=== PATIENT | male | born 1960 | race American Indian/Alaskan Native ===

== ENCOUNTER 2019-09-14 10:42 | Inpatient (IN) | payer OTHER ==
[2019-09-14] MEDS ORDERED: ASPIRIN 325 MG TAB PO ONE (10:45)
[2019-09-14] MEDS ORDERED: ACETAMINOPHEN 325 MG TAB PO ONE ×2 (11:01→11:08)
--- NOTE | 2019-09-14 11:22 | XRay Report ---
CHEST 1 VIEW INDICATION / CLINICAL INFORMATION: Chest Pain. COMPARISON: None available. FINDINGS: SUPPORT DEVICES: None. HEART / MEDIASTINUM: No significant abnormality. LUNGS / PLEURA: No significant pulmonary or pleural abnormality. No pneumothorax. ADDITIONAL FINDINGS: No significant additional findings. IMPRESSION: No acute pulmonary or pleural abnormality Signer Name: Yusef Coyle MD FACR Signed: 09/14/2019 11:18 AM Workstation Name: [id number]
[2019-09-14 11:28] LABS: Basophils % (Auto) 0.2 % (0.0-1.8); Hematocrit 41.9 % (35.5-45.6); Hemoglobin 14.1 gm/dl (11.8-15.2); Lymphocytes # (Auto) 0.8 K/mm3 (1.2-5.4); Lymphocytes % (Auto) 6.4 % (13.4-35.0); Mean Corpuscular HGB Conc 34 % (32-34); Mean Corpuscular Volume 89 fl (84-94); Monocytes # (Auto) 1.1 K/mm3 (0.0-0.8); Monocytes % (Auto) 8.8 % (0.0-7.3); Platelet Count 256 K/mm3 (140-440); Red Blood Count 4.69 M/mm3 (3.65-5.03); Red Cell Distribution Width 13.9 % (13.2-15.2)
[2019-09-14 11:48] LABS: Calcium 9.4 mg/dL (8.4-10.2)
[2019-09-14] MEDS ORDERED: SODIUM CHLORIDE 0.9% 500 ML 500 ML IV ONE (11:56)
--- NOTE | 2019-09-14 12:28 | Emergency Department Report ---
ED General Adult HPI - General Chief complaint: Chest Pain Stated complaint: CHEST PAIN/LEG PAIN Time Seen by Provider: 09/14/19 11:00 Source: patient Mode of arrival: Stretcher Limitations: Physical Limitation - History of Present Illness Initial comments: Patient is a 67-year-old F Iranian male with a past medical history of hypertension who is presenting with 3 days of chest discomfort. Patient states he feels as though it is a hollow sensation in the center chest. States the pain is intermittent and is worse with exertion. Patient states he is getting very weak and fatigued and his his exercise tolerance is significantly decreased. Patient denies shortness of breath cough fevers or chills. States he is had no nausea vomiting or diarrhea. Patient states that it takes him an hour to do simple tasks which normally would take him several minutes. Patient also is complaining of achiness in his anterior thighs bilaterally. States ther e is no pain with palpation but he does have significant soreness with movement. Severity scale (0 -10): 4 - Related Data Allergies Allergy/AdvReac Type Severity Reaction Status Date / Time No Known Allergies Allergy Unverified 09/14/19 10:45 ED Review of Systems ROS: Stated complaint: CHEST PAIN/LEG PAIN Other details as noted in HPI Comment: All other systems reviewed and negative ED Past Medical Hx - Past Medical History Previous Medical History?: Yes Hx Hypertension: Yes Hx Psychiatric Treatment: Yes (PTSD) - Surgical History Past Surgical History?: No - Social History Smoking Status: Never Smoker Substance Use Type: None ED Physical Exam - General Limitations: Physical Limitation General appearance: alert, in no apparent distress - Head Head exam: Present: atraumatic, normocephalic - Eye Eye exam: Present: normal appearance - ENT ENT exam: Present: normal orophraynx, mucous membranes moist - Neck Neck exam: Present: normal inspection - Respiratory Respiratory exam: Present: normal lung sounds bilaterally. Absent: respiratory distress, wheezes, rales, rhonchi - Cardiovascular Cardiovascular Exam: Present: normal rhythm, tachycardia, normal heart sounds. Absent: systolic murmur, diastolic murmur, rubs, gallop - GI/Abdominal GI/Abdominal exam: Present: soft, normal bowel sounds. Absent: distended, tenderness, guarding, rebound - Rectal Rectal exam: Present: deferred - Extremities Exam Extremities exam: Present: normal inspection. Absent: tenderness, calf tenderness - Back Exam Back exam: Present: normal inspection - Neurological Exam Neurological exam: Present: alert, oriented X3 - Psychiatric Psychiatric exam: Present: normal affect, normal mood - Skin Skin exam: Present: warm, dry, intact, normal color. Absent: rash ED Course Vital Signs 09/14/19 11:02 Temperature 100.8 F H Pulse Rate 112 H Respiratory 16 Rate Blood Pressure 143/95 [Left] O2 Sat by Pulse 94 Oximetry - Reevaluation(s) Reevaluation #1: 09/14/19 12:25 Patient denies shortness of breath or cough however he was surprisingly febrile when vital signs were taken. Once the patient's white count returned at 12.2 patient was placed on sepsis protocol. Patient was given Rocephin and azithromycin after blood cultures were drawn. Patient had no decrease in his map or blood pressure and the 30 cc/kg bolus will be held at this time until the lactic acid returns. Patient given 500 cc of normal saline and this will be adjusted appropriately if the lactic is greater than 4. Patient's symptoms are most closely associated with angina however with the fever and elevated white count pneumonia pulmonary embolus are also on the patient's differential. Chest x-ray is inconclusive at this time. A CT of the chest with angiography and ultrasound of the bilateral lower extremities have been added as well. ED Medical Decision Making - Lab Data Result diagrams: 09/14/19 10:45 09/14/19 11:02 Lab Results 09/14/19 09/14/19 09/14/19 Range/Units 10:45 11:02 11:03 WBC 12.2 H (4.5-11.0) K/mm3 RBC 4.69 (3.65-5.03) M/mm3 Hgb 14.1 (11.8-15.2) gm/dl Hct 41.9 (35.5-45.6) % MCV 89 (84-94) fl MCH 30 (28-32) pg MCHC 34 (32-34) % RDW 13.9 (13.2-15.2) % Plt Count 256 (140-440) K/mm3 Lymph % (Auto) 6.4 L (13.4-35.0) % [place] % (Auto) 8.8 H (0.0-7.3) % Eos % (Auto) 0.0 (0.0-4.3) % Baso % (Auto) 0.2 (0.0-1.8) % Lymph # 0.8 L (1.2-5.4) K/mm3 [place] # 1.1 H (0.0-0.8) K/mm3 Eos # 0.0 (0.0-0.4) K/mm3 Baso # 0.0 (0.0-0.1) K/mm3 Seg Neutrophils % 84.6 H (40.0-70.0) % Seg Neutrophils # 10.3 H (1.8-7.7) K/mm3 D-Dimer 958.76 H (0-234) ng/mlDDU Sodium 137 (137-145) mmol/L Potassium 3.7 (3.6-5.0) mmol/L Chloride 98.0 (98-107) mmol/L Carbon Dioxide 23 (22-30) mmol/L Anion Gap 20 mmol/L BUN 16 (9-20) mg/dL Creatinine 1.3 (0.8-1.5) mg/dL Estimated GFR 56 ml/min BUN/Creatinine Ratio 12 % Glucose 152 H (75-100) mg/dL Calcium 9.4 (8.4-10.2) mg/dL Troponin T 0.013 (0.00-0.029) ng/mL - EKG Data -: EKG Interpreted by Wi EKG shows normal: sinus rhythm, axis, intervals, QRS complexes, ST-T waves Rate: tachycardia - EKG Data Interpretation: normal EKG - Radiology Data [facility] [address] [place] [address] XRay Report Signed Patient: SHAUNA VELEZ MR#: [id number] : 1960 Acct:[id number] Age/Sex: 59 / M ADM Date: 09/14/19 Loc: ED Attending Dr: Ordering Physician: ZANDER DAVIS MD Date of Service: 09/14/19 Procedure(s): XR chest 1V ap Accession Number(s): [id number] cc: ZANDER DAVIS MD Fluoro Time In Minutes: CHEST 1 VIEW INDICATION / CLINICAL INFORMATION: Chest Pain. COMPARISON: None available. FINDINGS: SUPPORT DEVICES: None. HEART / MEDIASTINUM: No significant abnormality. LUNGS / PLEURA: No significant pulmonary or pleural abnormality. No pne umothorax. ADDITIONAL FINDINGS: No significant additional findings. IMPRESSION: No acute pulmonary or pleural abnormality Signer Name: Yusef Coyle MD FACR Signed: 09/14/2019 11:18 AM Workstation Name: [email or web address] Transcribed By: MS Dictated By: Yusef Coyle MD Electronically Authenticated By: Yusef Coyle MD Signed Date/Time: 09/14/19 1118 Ultrasound Doppler of the bilateral lower extremities shows no acute DVT Ordering Physician: ZANDER DAVIS MD Date of Service: 09/14/19 Procedure(s): CT angio chest Accession Number(s): [id number] cc: ZANDER DAVIS MD CTA CHEST WITH IV CONTRAST INDICATION / CLINICAL INFORMATION: MAIN: chest pain x3days elevated ddimer, can't move legs. [id number] 100ml. TECHNIQUE: Axial CT images were obtained through the chest after injection of 100 MLO Omnipaque 350 IV contrast. 3 plane MIP and/or 3D reconstructions were produced. All CT scans at this location are performed using CT dose reduction for ALARA by means of automated exposure control. COMPARISON: Chest radiograph from earlier the same day FINDINGS: PULMONARY ARTERIES: No pulmonary emboli. THORACIC AORTA: No significant abnormality. HEART: No significant abnormality. CORONARY ARTERIES: No significant calcification. PLEURA: No pleural effusion. No pneumothorax. LYMPH NODES: No adenopathy. LUNGS: No acute air space or interstitial disease. ADDITIONAL FINDINGS: None. UPPER ABDOMEN: No acute findings. SKELETAL STRUCTURES: No significant osseous abnormality. IMPRESSION: 1. No CT evidence for pulmonary embolism. 2. No acute findings. Signer Name: Flash Camacho MD Signed: 09/14/2019 1:58 PM Workstation Name: [id number] - Medical Decision Making Patient is a 59-year-old F Iranian male who is presenting with chest discomfort and decreased exercise tolerance. Chest x-ray was negative for any acute process. CT a of the chest was ordered since the patient did have elevated d- dimer and patient was tachycardic. CT angios showed no evidence of aortic dissection, pulmonary embolus, or missed pneumonia on from the chest x-ray. Patient will be admitted for observation for further cardiac risk ratification. He does have a elevated heart score of 5 making him moderate risk of complication from coronary artery disease. Critical Care Time: Yes (30) Critical care attestation.: If time is entered above; I have spent that time in minutes in the direct care of this critically ill patient, excluding procedure time. ED Disposition Clinical Impression: Unstable angina, Fever, unknown origin Disposition: DC-09 OP ADMIT IP TO THIS HOSP Is pt being admited?: Yes Does the pt Need Aspirin: No Condition: Stable Time of Disposition: 14:36 Heart Score - HEART Score History: Highly suspicious EKG: Non-specific Age: 45-65 Risk factors: 1-2 risk factors Troponin: < normal limit HEART Score: 5
--- NOTE | 2019-09-14 12:35 | Vascular Lab Report ---
VL venous duplex LE BILAT INDICATION / CLINICAL INFORMATION: bilateral leg pain. Doppler ultrasound and spectral analysis was performed on both lower extremities COMPARISON: None available. FINDINGS: The common femoral, superficial femoral, popliteal and calf veins were all identified. The veins were all compressible no obvious thrombus is seen. Normal Doppler flow seen in each vessel. IMPRESSION: No evidence of deep venous thrombosis of the lower extremities Signer Name: Yusef Coyle MD FACDeepa Signed: 09/14/2019 12:30 PM Workstation Name: [id number]
[2019-09-14] MEDS: cefTRIAXone/NS 2 GM/100 ML 2 GM/100 ML BAG IV SCH (12:42)
[2019-09-14] MEDS: AZITHROMYCIN 500 MG in SODIUM CHLORIDE 0.9% 250ML 250 ML IV SCH (13:01)
--- NOTE | 2019-09-14 14:02 | Cat Scan Report ---
CTA CHEST WITH IV CONTRAST INDICATION / CLINICAL INFORMATION: MAIN: chest pain x3days elevated ddimer, can't move legs. [id number] 100ml. TECHNIQUE: Axial CT images were obtained through the chest after injection of 100 MLO Omnipaque 350 IV contrast. 3 plane MIP and/or 3D reconstructions were produced. All CT scans at this location are performed usi ng CT dose reduction for ALARA by means of automated exposure control. COMPARISON: Chest radiograph from earlier the same day FINDINGS: PULMONARY ARTERIES: No pulmonary emboli. THORACIC AORTA: No significant abnormality. HEART: No significant abnormality. CORONARY ARTERIES: No significant calcification. PLEURA: No pleural effusion. No pneumothorax. LYMPH NODES: No adenopathy. LUNGS: No acute air space or interstitial disease. ADDITIONAL FINDINGS: None. UPPER ABDOMEN: No acute findings. SKELETAL STRUCTURES: No significant osseous abnormality. IMPRESSION: 1. No CT evidence for pulmonary embolism. 2. No acute findings. Signer Name: Flash Camacho MD Signed: 09/14/2019 1:58 PM Workstation Name: [id number]
[2019-09-14 17:28] LABS: Bilirubin,Urine NEG (Negative); Blood,Urine MOD (Negative); Color,Urine Amber (Yellow); Hyaline Casts,Urine 2 /LPF; Mucus,Urine FEW /HPF; Urobilinogen,Urine < 2.0 mg/dL (<2.0)
[2019-09-14] MEDS ORDERED: ONDANSETRON 4 MG/2 ML INJ IV PRN (22:24)
--- NOTE | 2019-09-14 22:24 | History and Physical Report ---
History of Present Illness Date of examination: 09/14/19 Date of admission: 09/14/19 14:36 Chief complaint: Chest pain for 3 days History of present illness: 67-year-old F [place] male with a past medical history of hypertension who is presenting with 3 days of chest discomfort. Patient states he feels as though it is a hollow sensation in the center chest. States the pain is intermittent and is worse with exertion. Patient states he is getting very weak and fatigued and his exercise tolerance is significantly decreased. Patient denies shortness of breath cough fevers or chills. States he is had no nausea vomiting or diarrhea. Patient states that it takes him an hour to do simple tasks which normally would take him several minutes. Patient also is complaining of achiness in his anterior thighs bilaterally. States there is no pain with palpation but he does have significant soreness with movement. Past Medical History Previous Medical History?: Yes Hypertension: Yes Psychiatric Treatment: Yes (PTSD) Surgical History Past Surgical History?: No Social History Smoking Status: Never Smoker Substance Use Type: None Family history Htn Review of Systems ROS: Stated complaint: CHEST PAIN/LEG PAIN Other details as noted in HPI Comment: All other systems reviewed and negative Medications and Allergies Allergies Allergy/AdvReac Type Severity Reaction Status Date / Time No Known Allergies Allergy Unverified 09/14/19 10:45 Home Medications Medication Instructions Recorded Confirmed Last Taken Type Unobtainable 09/14/19 09/14/19 Unknown History Active Meds: Active Medications Ceftriaxone Sodium (Rocephin/Ns 2 Gm/100 Ml) 2 gm in 100 mls @ 200 mls/hr IV Q24HR LYNN; Protocol Last Admin: 09/14/19 12:42 Dose: 200 mls/hr Documented by: Azithromycin 500 mg/ Sodium (Chloride) 250 mls @ 250 mls/hr IV Q24HR LYNN; Protocol Last Admin: 09/14/19 13:01 Dose: 250 mls/hr Documented by: Exam - Constitutional Vitals: Temp Pulse Resp BP Pulse Ox 98.2 F 99 H 18 167/99 97 09/14/19 17:44 09/14/19 16:50 09/14/19 17:44 09/14/19 17:44 09/14/19 16:50 General appearance: Present: no acute distress, well-nourished - EENT Eyes: Present: PERRL ENT: hearing intact, clear oral mucosa - Neck Neck: Present: supple, normal ROM - Respiratory Respiratory effort: normal Respiratory: bilateral: CTA - Cardiovascular Heart rate: 78 Rhythm: regular Heart Sounds: Present: S1 & S2. Absent: rub, click - Extremities Extremities: no ischemia, pulses intact, pulses symmetrical, No edema Peripheral Pulses: within normal limits - Abdominal General gastrointestinal: Present: soft, non-tender, non-distended, normal bowel sounds Male genitourinary: Present: normal - Integumentary Integumentary: Present: clear, warm, dry - Musculoskeletal Musculoskeletal: gait normal, strength equal bilaterally - Psychiatric Psychiatric: appropriate mood/affect, intact judgment & insight - Neurologic Neurologic: CNII-XII intact, moves all extremities HEART Score - HEART Score EKG: Non-specific Age: 45-65 Risk factors: 1-2 risk factors Troponin: Troponin T < 0.010 ng/mL (0.00-0.029) 09/14/19 16:09 Troponin: < normal limit - Critical Actions Critical Actions: 0-3 pts:0.9-1.7%risk of adverse cardiac event.Candidate for discharge Results - Labs CBC & Chem 7: 09/15/19 04:01 09/15/19 04:01 Labs: Laboratory Last Values WBC 12.2 K/mm3 (4.5-11.0) H 09/14/19 10:45 RBC 4.69 M/mm3 (3.65-5.03) 09/14/19 10:45 Hgb 14.1 gm/dl (11.8-15.2) 09/14/19 10:45 Hct 41.9 % (35.5-45.6) 09/14/19 10:45 MCV 89 fl (84-94) 09/14/19 10:45 MCH 30 pg (28-32) 09/14/19 10:45 MCHC 34 % (32-34) 09/14/19 10:45 RDW 13.9 % (13.2-15.2) 09/14/19 10:45 Plt Count 256 K/mm3 (140-440) 09/14/19 10:45 Lymph % (Auto) 6.4 % (13.4-35.0) L 09/14/19 10:45 [place] % (Auto) 8.8 % (0.0-7.3) H 09/14/19 10:45 Eos % (Auto) 0.0 % (0.0-4.3) 09/14/19 10:45 Baso % (Auto) 0.2 % (0.0-1.8) 09/14/19 10:45 Lymph # 0.8 K/mm3 (1.2-5.4) L 09/14/19 10:45 [place] # 1.1 K/mm3 (0.0-0.8) H 09/14/19 10:45 Eos # 0.0 K/mm3 (0.0-0.4) 09/14/19 10:45 Baso # 0.0 K/mm3 (0.0-0.1) 09/14/19 10:45 Seg Neutrophils % 84.6 % (40.0-70.0) H 09/14/19 10:45 Seg Neutrophils # 10.3 K/mm3 (1.8-7.7) H 09/14/19 10:45 D-Dimer 958.76 ng/mlDDU (0-234) H 09/14/19 11:03 Sodium 137 mmol/L (137-145) 09/14/19 11:02 Potassium 3.7 mmol/L (3.6-5.0) 09/14/19 11:02 Chloride 98.0 mmol/L (98-107) 09/14/19 11:02 Carbon Dioxide 23 mmol/L (22-30) 09/14/19 11:02 Anion Gap 20 mmol/L 09/14/19 11:02 BUN 16 mg/dL (9-20) 09/14/19 11:02 Creatinine 1.3 mg/dL (0.8-1.5) 09/14/19 11:02 Estimated GFR 56 ml/min 09/14/19 11:02 BUN/Creatinine Ratio 12 % 09/14/19 11:02 Glucose 152 mg/dL (75-100) H 09/14/19 11:02 Lactic Acid 1.30 mmol/L (0.7-2.0) 09/14/19 14:26 Calcium 9.4 mg/dL (8.4-10.2) 09/14/19 11:02 Troponin T < 0.010 ng/mL (0.00-0.029) 09/14/19 16:09 Urine Color [place] (Yellow) 09/14/19 16:50 Urine Turbidity Clear (Clear) 09/14/19 16:50 Urine pH 5.0 (5.0-7.0) 09/14/19 16:50 Ur Specific [place] 1.021 (1.003-1.030) 09/14/19 16:50 Urine Protein 30 mg/dl mg/dL (Negative) 09/14/19 16:50 Urine Glucose (UA) Neg mg/dL (Negative) 09/14/19 16:50 Urine Ketones Neg mg/dL (Negative) 09/14/19 16:50 Urine Blood Mod (Negative) 09/14/19 16:50 Urine Nitrite Neg (Negative) 09/14/19 16:50 Urine Bilirubin Neg (Negative) 09/14/19 16:50 Urine Urobilinogen < 2.0 mg/dL (<2.0) 09/14/19 16:50 Ur Leukocyte Esterase Neg (Negative) 09/14/19 16:50 Urine WBC (Auto) 2.0 /HPF (0.0-6.0) 09/14/19 16:50 Urine RBC (Auto) 9.0 /HPF (0.0-6.0) 09/14/19 16:50 U Epithel Cells (Auto) 1.0 /HPF (0-13.0) 09/14/19 16:50 Hyaline Casts 2 /LPF 09/14/19 16:50 Urine Mucus Few /HPF 09/14/19 16:50 Short CBC 09/15/19 Range/Units 04:01 WBC 10.3 (4.5-11.0) K/mm3 Hgb 13.5 (11.8-15.2) gm/dl Hct 40.0 (35.5-45.6) % Plt Count 266 (140-440) K/mm3 BMP 09/15/19 04:01 Sodium 140 Potassium 4.0 Chloride 102.4 Carbon Dioxide 26 BUN 16 Creatinine 1.1 Glucose 159 H Calcium 9.0 Cardiac Enzymes 09/14/19 09/14/19 09/15/19 Range/Units 16:09 23:10 04:01 Troponin T < 0.010 0.011 0.012 (0.00-0.029) ng/mL Liver Function 05/24/20 Range/Units 04:01 Total Bilirubin 1.80 H (0.1-1.2) mg/dL AST 80 H (5-40) units/L ALT 107 H (7-56) units/L Alkaline Phosphatase 142 H (35-129) units/L Albumin 3.5 L (3.9-5) g/dL Urine 09/14/19 Range/Units 16:50 Urine Color [place] (Yellow) Urine pH 5.0 (5.0-7.0) Ur Specific [place] 1.021 (1.003-1.030) Urine Protein 30 mg/dl (Negative) mg/dL Urine Glucose (UA) Neg (Negative) mg/dL Microbiology: Microbiology 09/14/19 12:27 Peripheral/Venous Blood Culture - Preliminary Culture in Progress 09/14/19 12:27 Peripheral/Venous Blood Culture - Preliminary Culture in Progress - Imaging and Cardiology EKG: report reviewed (Sinus rhythm) Chest x-ray: report reviewed (No acute findings) CT scan - chest: report reviewed (No acute findings) MRI - head: report reviewed (Duplex scan lower extremities-no DVT) Assessment and Plan Advance Directives: Yes (Full code) - Patient Problems (1) Chest pain Current Visit: Yes Status: Acute Plan to address problem: Chest pain rule out [place] protocol Serial troponins Stress test in the morning of Monday Today is Monday (2) HTN (hypertension) Current Visit: Yes Status: Chronic Qualifiers: Hypertension type: essential hypertension Qualified Code(s): I10 - Esse ntial (primary) hypertension Plan to address problem: Patient has a baseline blood pressure of 150s/100 We will start him on valsartan 160 mg once p.o. daily (3) DVT prophylaxis Current Visit: Yes Status: Acute Plan to address problem: Patient on heparin and GI prophylaxis
[2019-09-14] MEDS: oxyCODONE /ACETAMINOPHEN 5-325MG TAB PO PRN (23:26)
[2019-09-14] MEDS: FAMOTIDINE 20 MG/2 ML INJ IV SCH (23:26)
[2019-09-14] MEDS: D5W/0.9% NACL 1,000 ML IV SCH (23:27)
[2019-09-15 04:38] LABS: Basophils % (Auto) 0.3 % (0.0-1.8); Eosinophils % (Auto) 0.1 % (0.0-4.3); Hemoglobin 13.5 gm/dl (11.8-15.2); Lymphocytes # (Auto) 0.7 K/mm3 (1.2-5.4); Lymphocytes % (Auto) 7.3 % (13.4-35.0); Mean Corpuscular HGB Conc 34 % (32-34); Mean Corpuscular Volume 91 fl (84-94); Monocytes # (Auto) 0.8 K/mm3 (0.0-0.8); Monocytes % (Auto) 7.6 % (0.0-7.3); Platelet Count 266 K/mm3 (140-440); Red Blood Count 4.42 M/mm3 (3.65-5.03); Red Cell Distribution Width 14.1 % (13.2-15.2)
[2019-09-15 05:01] LABS: Alanine Aminotransferase 107 units/L (7-56); Albumin 3.5 g/dL (3.9-5); BUN/Creatinine Ratio 15; Blood Urea Nitrogen 16 mg/dL (9-20); Hemolysis Index 0
[2019-09-15] MEDS: ACETAMINOPHEN 325 MG TAB PO PRN ×3 (08:56→22:25)
[2019-09-15] MEDS: oxyCODONE /ACETAMINOPHEN 5-325MG TAB PO PRN ×2 (08:57→14:33)
[2019-09-15] MEDS: FAMOTIDINE 20 MG/2 ML INJ IV SCH (09:00)
[2019-09-15] MEDS: cefTRIAXone/NS 2 GM/100 ML 2 GM/100 ML BAG IV SCH (09:00)
[2019-09-15] MEDS: AZITHROMYCIN 500 MG in SODIUM CHLORIDE 0.9% 250ML 250 ML IV SCH (10:04)
[2019-09-15] MEDS: D5W/0.9% NACL 1,000 ML IV SCH (14:34)
[2019-09-15] MEDS: FAMOTIDINE 20 MG TAB PO SCH (22:25)
--- NOTE | 2019-09-16 03:16 | Progress Note ---
Assessment and Plan - Patient Problems (1) Chest pain Current Visit: Yes Status: Acute Plan to address problem: Chest pain rule out [place] protocol Serial troponins Stress test in the morning of Monday Today is Monday (2) HTN (hypertension) Current Visit: Yes Status: Chronic Qualifiers: Hypertension type: essential hypertension Qualified Code(s): I10 - Essential (primary) hypertension Plan to address problem: Patient has a baseline blood pressure of 150s/100 We will start him on valsartan 160 mg once p.o. daily (3) SIRS (systemic inflammatory response syndrome) Current Visit: Yes Status: Acute Plan to address problem: Fever--r/o Covid (4) DVT prophylaxis Current Visit: Yes Status: Acute Plan to address problem: Patient on heparin and GI prophylaxis Subjective Date of service: 09/15/19 Principal diagnosis: Chest pain,Fever Interval history: 67-year-old F [place]inamese male with a past medical history of hypertension who is presenting with 3 days of chest discomfort. Patient states he feels as though it is a hollow sensation in the center chest. States the pain is intermittent and is worse with exertion. Patient states he is getting very weak and fatigued and his exercise tolerance is significantly decreased. Patient denies shortness of breath cough fevers or chills. States he is had no nausea vomiting or diarrhea. Patient states that it takes him an hour to do simple tasks which normally would take him several minutes. Patient also is complaining of achiness in his anterior thighs bilaterally. States there is no pain with palpation but he does have significant soreness with movement. Fever today -- Objective - Constitutional Vitals: Vital Signs - 12hr 09/15/19 09/15/19 09/15/19 15:33 18:17 18:23 Temperature 100.1 F H Pulse Rate Pulse Rate [ Apical] Respiratory 16 18 16 Rate Blood Pressure 153/102 O2 Sat by Pulse Oximetry 09/15/19 09/15/19 09/15/19 19:23 19:32 20:00 Temperature 100.8 F H Pulse Rate 120 H 120 H Pulse Rate [ Apical] Respiratory 18 18 Rate Blood Pressure 163/102 O2 Sat by Pulse 96 Oximetry 09/15/19 09/15/19 09/15/19 22:00 22:25 23:25 Temperature Pulse Rate Pulse Rate [ 110 H Apical] Respiratory 20 18 Rate Blood Pressure O2 Sat by Pulse 96 Oximetry 09/16/19 00:12 Temperature 99.3 F Pulse Rate 99 H Pulse Rate [ Apical] Respiratory 18 Rate Blood Pressure 127/81 O2 Sat by Pulse 97 Oximetry General appearance: Present: no acute distress, well-nourished - EENT Eyes: PERRL, EOM intact ENT: hearing intact, clear oral mucosa Ears: bilateral: normal - Neck Neck: supple, normal ROM - Respiratory Respiratory effort: normal Respiratory: bilateral: CTA - Breasts Breasts: normal - Cardiovascular Heart rate: 88 Rhythm: regular Heart Sounds: Present: S1 & S2. Absent: gallop, rub Extremities: pulses intact, No edema, normal color, Full ROM - Gastrointestinal General gastrointestinal: Present: soft, non-tender, non-distended, normal bowel sounds Rectal Exam: deferred - Genitourinary Male genitourinary: normal - Integumentary Integumentary: clear, warm, dry - Musculoskeletal Musculoskeletal: 1, strength equal bilaterally - Neurologic Neurologic: moves all extremities - Psychiatric Psychiatric: memory intact, appropriate mood/affect, intact judgment & insight - Labs CBC & Chem 7: 09/15/19 04:01 09/15/19 04:01 Labs: Abnormal lab results 09/15/19 09/15/19 Range/Units 04:01 04:01 Lymph % (Auto) 7.3 L (13.4-35.0) % [place] % (Auto) 7.6 H (0.0-7.3) % Lymph # 0.7 L (1.2-5.4) K/mm3 Seg Neutrophils % 84.7 H (40.0-70.0) % Seg Neutrophils # 8.7 H (1.8-7.7) K/mm3 Glucose 159 H (75-100) mg/dL Total Bilirubin 1.80 H (0.1-1.2) mg/dL AST 80 H (5-40) units/L ALT 107 H (7-56) units/L Alkaline Phosphatase 142 H (35-129) units/L Albumin 3.5 L (3.9-5) g/dL HEART Score - HEART Score EKG: Non-specific Age: 45-65 Risk factors: 1-2 risk factors Troponin: Troponin T 0.012 ng/mL (0.00-0.029) 09/15/19 04:01 Troponin: < normal limit - Critical Actions Critical Actions: 0-3 pts:0.9-1.7%risk of adverse cardiac event.Candidate for discharge
[2019-09-16] MEDS: D5W/0.9% NACL 1,000 ML IV SCH ×2 (04:00→16:37)
[2019-09-16 05:42] LABS: C-Reactive Protein 40.8 mg/dL (0.00-1.30)
[2019-09-16] MEDS: FAMOTIDINE 20 MG TAB PO SCH ×2 (09:54→21:23)
[2019-09-16] MEDS: AZITHROMYCIN 250 MG TAB PO SCH (09:54)
[2019-09-16] MEDS: cefTRIAXone/NS 2 GM/100 ML 2 GM/100 ML BAG IV SCH (09:55)
[2019-09-16] MEDS: ACETAMINOPHEN 325 MG TAB PO PRN (16:38)
[2019-09-16 20:21] LABS: Hepatitis B Surface Antigen Non-Reactive (Negative); Hepatitis C Virus Antibody Non-Reactive (NonReactive)
[2019-09-16] MEDS: HYDROmorphone 1 MG/1 ML INJ IV PRN (23:52)
[2019-09-17 04:28] LABS: Basophils % (Auto) 0.2 % (0.0-1.8); Eosinophils # (Auto) 0.1 K/mm3 (0.0-0.4); Eosinophils % (Auto) 0.9 % (0.0-4.3); Hematocrit 37.9 % (35.5-45.6); Hemoglobin 12.7 gm/dl (11.8-15.2); Lymphocytes # (Auto) 0.7 K/mm3 (1.2-5.4); Lymphocytes % (Auto) 6.4 % (13.4-35.0); Mean Corpuscular HGB Conc 34 % (32-34); Mean Corpuscular Volume 90 fl (84-94); Monocytes # (Auto) 0.7 K/mm3 (0.0-0.8); Monocytes % (Auto) 6.7 % (0.0-7.3); Platelet Count 299 K/mm3 (140-440); Red Cell Distribution Width 14.6 % (13.2-15.2)
[2019-09-17 04:52] LABS: Alanine Aminotransferase 116 units/L (7-56); Albumin 2.8 g/dL (3.9-5); BUN/Creatinine Ratio 11; Blood Urea Nitrogen 12 mg/dL (9-20); Calcium 8.8 mg/dL (8.4-10.2); Hemolysis Index 5
[2019-09-17] MEDS: HYDROmorphone 1 MG/1 ML INJ IV PRN (05:32)
[2019-09-17] MEDS: D5W/0.9% NACL 1,000 ML IV SCH (05:33)
[2019-09-17] MEDS ORDERED: hydrALAZINE 20 MG/1 ML INJ IV PRN (06:39)
[2019-09-17] MEDS: ACETAMINOPHEN 325 MG TAB PO PRN (07:09)
--- NOTE | 2019-09-17 07:18 | Progress Note ---
Assessment and Plan - Patient Problems (1) Chest pain Current Visit: Yes Status: Acute Plan to address problem: Chest pain rule out MD protocol Serial troponins Stress test in the morning of Monday Today is Monday (2) HTN (hypertension) Current Visit: Yes Status: Chronic Qualifiers: Hypertension type: essential hypertension Qualified Code(s): I10 - Essential (primary) hypertension Plan to address problem: Patient has a baseline blood pressure of 150s/100 We will start him on valsartan 160 mg once p.o. daily (3) SIRS (systemic inflammatory response syndrome) Current Visit: Yes Status: Acute Plan to address problem: Covid--Ruled out (4) DVT prophylaxis Current Visit: Yes Status: Acute Plan to address problem: Patient on heparin and GI prophylaxis Subjective Date of service: 09/16/19 Principal diagnosis: Chest pain,Fever Interval history: 67-year-old F [place] male with a past medical history of hypertension who is presenting with 3 days of chest discomfort. Patient states he feels as though it is a hollow sensation in the center chest. States the pain is intermittent and is worse with exertion. Patient states he is getting very weak and fatigued and his exercise tolerance is significantly decreased. Patient denies shortness of breath cough fevers or chills. States he is had no nausea vomiting or diarrhea. Patient states that it takes him an hour to do simple tasks which normally would take him several minutes. Patient also is complaining of achiness in his anterior thighs bilaterally. States there is no pain with palpation but he does have significant soreness with movement. Fever resolved -- Objective - Constitutional Vitals: Vital Signs - 12hr 09/16/19 09/16/19 09/17/19 22:31 23:23 03:14 Temperature 99.4 F 98.4 F Pulse Rate 106 H 103 H Respiratory 20 20 Rate Blood Pressure 148/100 169/99 Blood Pressure [Left] O2 Sat by Pulse 97 99 95 Oximetry 09/17/19 06:16 Temperature 99.1 F Pulse Rate 103 H Respiratory 20 Rate Blood Pressure Blood Pressure 173/110 [Left] O2 Sat by Pulse 95 Oximetry General appearance: Present: no acute distress, well-nourished - EENT Eyes: PERRL, EOM intact ENT: hearing intact, clear oral mucosa Ears: bilateral: normal - Neck Details: 78 Neck: supple, normal ROM - Respiratory Respiratory effort: normal Respiratory: bilateral: CTA - Breasts Breasts: normal - Cardiovascular Rhythm: regular Heart Sounds: Present: S1 & S2. Absent: gallop, rub Extremities: pulses intact, No edema, normal color, Full ROM - Gastrointestinal General gastrointestinal: Present: soft, non-tender, non-distended, normal bowel sounds - Genitourinary Male genitourinary: normal - Integumentary Integumentary: clear, warm, dry - Musculoskeletal Musculoskeletal: 1, strength equal bilaterally - Neurologic Neurologic: moves all extremities - Psychiatric Psychiatric: memory intact, appropriate mood/affect, intact judgment & insight - Labs CBC & Chem 7: 09/17/19 03:27 09/17/19 03:27 Labs: Abnormal lab results 09/17/19 09/17/19 Range/Units 03:27 03:27 Lymph % (Auto) 6.4 L (13.4-35.0) % Lymph # 0.7 L (1.2-5.4) K/mm3 Seg Neutrophils % 85.8 H (40.0-70.0) % Seg Neutrophils # 8.8 H (1.8-7.7) K/mm3 Glucose 169 H (75-100) mg/dL Total Bilirubin 1.30 H (0.1-1.2) mg/dL AST 88 H (5-40) units/L ALT 116 H (7-56) units/L Alkaline Phosphatase 188 H (35-129) units/L Albumin 2.8 L (3.9-5) g/dL HEART Score - HEART Score EKG: Non-specific Age: 45-65 Risk factors: 1-2 risk factors Troponin: Troponin T 0.012 ng/mL (0.00-0.029) 09/15/19 04:01 Troponin: < normal limit - Critical Actions Critical Actions: 0-3 pts:0.9-1.7%risk of adverse cardiac event.Candidate for discharge
[2019-09-17] MEDS ORDERED: REGADENOSON 0.4 MG/5 ML INJ IV ONE ×2 (07:37→07:56)
[2019-09-17] MEDS: AZITHROMYCIN 250 MG TAB PO SCH (12:11)
[2019-09-17] MEDS: FAMOTIDINE 20 MG TAB PO SCH (12:12)
[2019-09-17] MEDS: cefTRIAXone/NS 2 GM/100 ML 2 GM/100 ML BAG IV SCH (12:20)
--- NOTE | 2019-09-17 13:46 | Treadmill Report ---
NUCLEAR PERFUSION STUDY REASON FOR STUDY: Shortness of breath and chest pain. IMAGING PROTOCOL: The patient received 10 mCi of Technetium 99m Tetrofosmin for resting image and 28 mCi of Technetium 99m Tetrofosmin for stress imaging. The imaging for the whole procedure was completed 30-90 minutes following the initial injection of Technetium 99m Tetrofosmin. The SPECT imaging in the 180 degree arc was performed in the right anterior oblique projection. Computerized reconstruction of the images was performed for analysis. IMAGING RESULTS: Normal cavity size from stress to rest. Normal distribution of radionuclide in the anterior, inferior, septal, and apical regions. Gated SPECT, EF 60% with no wall motion abnormality. The patient infused Lexiscan with no EKG changes. SUMMARY: 1. Negative Lexiscan EKG. 2. Normal rest and stress myocardial perfusion scan. No significant ischemia. No wall motion abnormality. Gated SPECT, EF 60%. JOB# [id number] VRM/NTS
--- NOTE | 2019-09-17 18:09 | Discharge Summary ---
Providers - Providers Date of Admission: 09/16/19 15:47 Date of discharge: 09/17/19 Attending physician: ROSE PACE [facility] Condition: Stable Hospital course: 67-year-old F [place] male with a past medical history of hypertension who is presenting with 3 days of chest discomfort. Patient states he feels as though it is a hollow sensation in the center chest. States the pain is intermittent and is worse with exertion. Patient states he is getting very weak and fatigued and his exercise tolerance is significantly decreased. Patient denies shortness of breath cough fevers or chills. States he is had no nausea vomiting or diarrhea. Patient states that it takes him an hour to do simple tasks which no rmally would take him several minutes. Patient also is complaining of achiness in his anterior thighs bilaterally. States there is no pain with palpation but he does have significant soreness with movement. Fever resolved (1) Chest pain Current Visit: Yes Status: Acute Plan to address problem: Troponin--negative Stress test done negative (2) HTN (hypertension) Current Visit: Yes Status: Chronic Qualifiers: Hypertension type: essential hypertension Qualified Code(s): I10 - Essential (primary) hypertension Plan to address problem: Patient has a baseline blood pressure of 150s/10 started him on valsartan 160 mg once p.o. daily (3) SIRS (systemic inflammatory response syndrome) Current Visit: Yes Status: Acute Plan to address problem: Covid--Ruled out Etio --viral -- Disposition: DC-01 TO HOME OR SELFCARE Core Measure Documentation - Palliative Care Palliative Care/ Comfort Measures: Not Applicable - Core Measures Any of the following diagnoses?: none Exam - Constitutional Vitals: Temp Pulse Resp BP Pulse Ox 98.6 F 109 H 18 160/94 98 09/17/19 15:18 09/17/19 15:18 09/17/19 15:18 09/17/19 15:18 09/17/19 15:18 General appearance: Present: no acute distress, well-nourished - EENT Eyes: Present: PERRL ENT: hearing intact, clear oral mucosa - Neck Neck: Present: supple, normal ROM - Respiratory Respiratory effort: normal Respiratory: bilateral: CTA - Cardiovascular Heart rate: 78 Rhythm: regular Heart Sounds: Present: S1 & S2. Absent: rub, click - Extremities Extremities: pulses symmetrical, No edema Peripheral Pulses: within normal limits - Abdominal General gastrointestinal: Present: soft, non-tender, non-distended, normal bowel sounds Male genitourinary: Present: normal - Integumentary Integumentary: Present: clear, warm, dry - Musculoskeletal Musculoskeletal: gait normal, strength equal bilaterally - Psychiatric Psychiatric: appropriate mood/affect, intact judgment & insight - Neurologic Neurologic: CNII-XII intact, moves all extremities - Allied Health Allied health notes reviewed: nursing, case management Plan Activity: no restrictions Diet: regular Follow up with: OSBALDO MARTÍNEZODESSA MD SHILO [Primary Care Provider] - 7 Days STAN BLUE MD [Staff Physician] - 7 Days
[2019-09-17 21:37] VITALS: BP 143/85
== END 2019-09-17 22:30 | disposition home or self-care (01) | DRG 392 ==
LOC: ED 10:42 → 4A 14:36 → OBSVTOIN 09-16 15:47
PROVIDERS: ADMIT Internal Medicine; ATTEND Internal Medicine
DX: K21.9 Gastro-esophageal reflux disease without esophagitis (principal); R65.10 Systemic inflammatory response syndrome (SIRS) of non-infectious origin without acute organ dysfunction; I20.0 Unstable angina; I10 Essential (primary) hypertension; F43.10 Post-traumatic stress disorder, unspecified; Z82.49 Family history of ischemic heart disease and other diseases of the circulatory system; Z03.818 Encounter for observation for suspected exposure to other biological agents ruled out
CPT/HCPCS: 36415; 71045; 71275; 78452; 80048; 80053; 80074; 81001; 82140; 82728; 82947; 83036; 83615; 84145; 84484; 85025; 85379; 86140; 87040; 93005; 93017; 93970; G0378; A9502; J0360; J0456; J0696; J1170; J2405; J2785; J7040; J7042; J7050; Q9967; U0003-CS

== ENCOUNTER 2020-03-11 17:44 | Emergency (ER) | payer OTHER | END 2020-03-11 21:14 | disposition left against medical advice (07) | LOC: ED 17:44 | DX: T14.8XXA Other injury of unspecified body region, initial encounter (principal); W57.XXXA Bitten or stung by nonvenomous insect and other nonvenomous arthropods, initial encounter; Y93.89 Activity, other specified; Y92.89 Other specified places as the place of occurrence of the external cause; Y99.8 Other external cause status ==